=== PATIENT | female | born 1985 | race Asian ===

== ENCOUNTER 2025-10-07 00:08 | Inpatient (IN) | payer OTHER ==
[~2025-10-07] VITALS: Ht 147.3 cm; Wt 40.0 kg
[2025-10-07 02:43] LABS: COVID AG,FIA SOURCE NASAL SWAB
[2025-10-07] MEDS: LORazepam 2 MG/ML VIAL IM ONE (02:48)
[2025-10-07 02:55] LABS: SARS-COV2 (COVID) ANTIGEN,FIA Negative (Negative)
[2025-10-07] MEDS ORDERED: ZOLPIDEM TARTRATE 10 MG TABLET PO PRN (03:45)
[2025-10-07] MEDS ORDERED: IBUPROFEN 400 MG TABLET PO PRN (07:45)
[2025-10-07] MEDS ORDERED: ACETAMINOPHEN 325 MG TABLET PO PRN (07:45)
[2025-10-07] MEDS ORDERED: NICOTINE 14 MG/24 HOUR PATCH TD PRN (07:45)
[2025-10-07] MEDS ORDERED: MAG HYDROX/ALUMINUM HYD/SIMETH ES 30 ML SUSPENSION UDCUP PO PRN (07:45)
[2025-10-07] MEDS ORDERED: GuaiFENesin/D-METHORPHAN [SUGAR-FREE] 200-20MG/10 ML SYRUP UDCUP PO PRN (07:45)
[2025-10-07] MEDS ORDERED: ALBUTEROL SULFATE HFA 90 MCG/PUFF 8 GM INHALER IH PRN (07:45)
[2025-10-07] MEDS ORDERED: MAGNESIUM HYDROXIDE SUSPENSION 30 ML UDCUP PO PRN (07:45)
[2025-10-07] MEDS ORDERED: ONDANSETRON 4 MG TABLET PO PRN (07:45)
[2025-10-07] MEDS ORDERED: DOCUSATE SODIUM 100 MG CAPSULE PO PRN (07:45)
[2025-10-07] MEDS ORDERED: PETROLATUM,WHITE 28 GM JELLY TP PRN (07:45)
[2025-10-07] MEDS ORDERED: LOPERAMIDE HCL 2 MG CAPSULE PO PRN (07:45)
[2025-10-07 08:17] VITALS: O2SAT 99
[2025-10-07 09:15] VITALS: BP 118/84; PULSE 101; RESP 18; TEMP 98.7; O2SAT 99
[2025-10-07 20:26] VITALS: BP 120/88; PULSE 78; RESP 17; TEMP 98.1; O2SAT 98
[2025-10-08 08:13] VITALS: BP 127/94; PULSE 99; RESP 17; TEMP 97.9; O2SAT 100
[2025-10-08 09:02] LABS: PLATELET COUNT (AUTO) 245 K/uL (150-450); RED BLOOD CELL COUNT(AUTO) 4.63 MIL/uL (4.00-5.20); RED CELL DISTRIBUTION WIDTH 13.1 % (11.5-14.5); WHITE BLOOD COUNT (AUTO) 5.9 K/uL (4.5-11.0)
[2025-10-08 09:24] LABS: ASPARTATE AMINOTRANSFERASE 65 U/L (15-37); CALCIUM, TOTAL 8.7 mg/dL (8.8-10.5); CHOL/HDL RATIO 2.5 (3.9-5.7); CREATININE 1.01 mg/dL (0.60-1.30); GLOMERULAR FILTR. RATE CALC > 60 mL/min (>60); GLUCOSE,RANDOM 101 mg/dL (70-110); SODIUM SERUM 136 mmol/L (136-145); TOTAL PROTEIN, SERUM 6.8 g/dL (6.4-8.2); UREA NITROGEN, BLOOD 17 mg/dL (7-18)
[2025-10-08 09:41] LABS: LDL CHOL (CALC.) 94 mg/dL (0-130)
== END 2025-10-08 13:07 | disposition home or self-care (01) | DRG 885 ==
LOC: EMS 00:08 → B3A 04:43
PROVIDERS: ADMIT Psychiatry & Neurology Child & Adolescent Psychiatry; ATTEND Psychiatry & Neurology Child & Adolescent Psychiatry
PROC: GZ58ZZZ Individual Psychotherapy, Cognitive-Behavioral (ICD-10-PCS; 2025-10-07)
PROC: GZ56ZZZ Individual Psychotherapy, Supportive (ICD-10-PCS; 2025-10-07)
PROC: GZHZZZZ Group Psychotherapy (ICD-10-PCS; principal; 2025-10-08)
DX: F20.9 Schizophrenia, unspecified (principal); I10 Essential (primary) hypertension; R00.0 Tachycardia, unspecified; Z20.822 Contact with and (suspected) exposure to COVID-19; Z79.899 Other long term (current) drug therapy
CPT/HCPCS: 80053; 80061; 83036; 84436; 84443; 85025; 96372; 99285; J1200; J1630; J2060